=== PATIENT | female | born 1975 | race Caucasian/White ===

== ENCOUNTER 2023-05-07 17:05 | Emergency (ER) | payer OTHER, SELFPAY ==
[2023-05-07 17:21] VITALS: BP 156/105; PULSE 100; RESP 16; TEMP 36.6; O2SAT 98
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
== END 2023-05-07 18:08 | disposition home or self-care (01) ==
PROVIDERS: Emergency Provider Nurse Practitioner Family
DX: S16.1XXA Strain of muscle, fascia and tendon at neck level, initial encounter (principal); V43.52XA Car driver injured in collision with other type car in traffic accident, initial encounter; F41.9 Anxiety disorder, unspecified
CPT/HCPCS: 99213; G0463

== ENCOUNTER 2023-05-18 11:49 | Emergency (ER) | payer OTHER, SELFPAY ==
--- NOTE | ~2023-05-18 | XR_ITS ---
EXAMINATION:XR_CERV2-3V_CR DATE: 05/18/2023 13:14 INDICATION: Neck pain TECHNIQUE: AP, lateral, lateral swimmers and odontoid views of the cervical spine are provided. COMPARISON: None FINDINGS: Alignment is normal. The odontoid process is intact. No fracture is identified. The vertebr al body heights are maintained. There is moderate loss of intervertebral disc space height at C6-7. S mall degenerative osteophytes project from the anterior endplates of multiple vertebral bodies. There is moderate facet and uncovertebral joint osteoarthritis at C6-7. Prevertebral soft tissues are norm al. IMPRESSION: 1. Moderate cervical spondylosis at C6-7 without acute osseous abnormality. 

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
[2023-05-18 12:00] VITALS: BP 162/94; PULSE 106; RESP 16; TEMP 37.2; O2SAT 99
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
== END 2023-05-18 13:45 | disposition home or self-care (01) ==
PROVIDERS: Emergency Provider Registered Nurse
DX: M54.41 Lumbago with sciatica, right side (principal); S16.1XXD Strain of muscle, fascia and tendon at neck level, subsequent encounter; V49.9XXD Car occupant (driver) (passenger) injured in unspecified traffic accident, subsequent encounter; F41.9 Anxiety disorder, unspecified
CPT/HCPCS: 72040; 72100; 99213; G0463

== ENCOUNTER → 2023-06-29 14:25 | Outpatient (CLI) | payer BC, SELFPAY ==
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
== END ==
PROVIDERS: PCP Family Medicine
DX: T14.90XA Injury, unspecified, initial encounter (principal); M47.896 Other spondylosis, lumbar region; M47.894 Other spondylosis, thoracic region; M47.897 Other spondylosis, lumbosacral region
CPT/HCPCS: 72141; 72148

== ENCOUNTER → 2023-07-26 15:32 | Outpatient (CLI) | payer BC, SELFPAY ==
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
== END ==
PROVIDERS: Visit Provider Nurse Practitioner Family
DX: T14.90XA Injury, unspecified, initial encounter (principal); M47.894 Other spondylosis, thoracic region
CPT/HCPCS: 72146

== ENCOUNTER 2023-11-29 12:45 | Outpatient (CLI) | payer BC, SELFPAY ==
--- NOTE | ~2023-11-29 | MM_ITS ---
EXAMINATION: MM screening kevin BI w britany HISTORY: Screening mammogram TECHNIQUE: Craniocaudal and mediolateral oblique 3-D tomosynthesis images were obtained and synthetic 2-D images were generated. CAD analysis was submitted and interpreted. COMPARISON: No prior mammogram is available for comparison at this institution. BREAST PARENCHYMAL COMPOSITION: There are scattered areas of fibroglandular density. FINDINGS: There is no evidence of suspicious mass, calcification, or architectural distortion to sugg est malignancy in either breast. IMPRESSION: 1. No mammographic evidence of malignancy. 2. Recommend routine screening mammography in one year. BI-RADS Category 1: Negative Reviewed, dictated and finalized at location A. [employer]CTOR [employer]ING
== END 2023-11-29 12:46 ==
LOC: MICIMG 12:46
PROVIDERS: PCP Nurse Practitioner Family; Visit Provider Nurse Practitioner Family
DX: Z12.31 Encounter for screening mammogram for malignant neoplasm of breast (principal)
CPT/HCPCS: 77063; 77067

== ENCOUNTER 2023-12-27 14:57 | Emergency (ER) | payer BC, SELFPAY ==
[2023-12-27 15:11] VITALS: BP 146/83; PULSE 87; RESP 16; TEMP 36.6; O2SAT 100
--- NOTE | 2023-12-27 15:23 | ED.URI ---
HPI - URI/Sore Throat General Chief Complaint: Ear Stated Complaint: Right Ear Irritation Time Seen by Provider: 12/27/23 15:23 Source: patient, RN notes reviewed and old records reviewed Mode of arrival: ambulatory Limitations: no limitations History of Present Illness HPI Narrative: 48-year-old female presents to the [facility] with right ear discomfort for 2 days. Had use Q-tips in her ears. Denies any other symptoms Takes ibuprofen on a regular basis Related Data Home Medications Medication Instructions Recorded Confirmed blood sugar diagnostic (OneTouch 12/27/23 12/27/23 Ultra Test strips) blood-glucose meter (OneTouch 12/27/23 12/27/23 Ultra2 Meter) carisoprodol 250 mg tablet 250 mg PO DIRECTED 12/27/23 12/27/23 ibuprofen 800 mg tablet 800 mg PO DIRECTED 12/27/23 12/27/23 lancets 33 gauge (OneTouch Delica 12/27/23 12/27/23 Plus Lancet) metformin 500 mg tablet 500 mg PO DIRECTED 12/27/23 12/27/23 Allergies Allergy/AdvReac Type Severity Reaction Status Date / Time No Known Allergies Allergy Verified 12/27/23 15:10 Review of Systems Review of Systems: All systems reviewed & are unremarkable except as noted in HPI and below Constitutional: Constitutional: Reports no additional constitutional complaints Eyes: Eyes: Reports no additional eye complaints ENT: Reports as per HPI and Reports otalgia Cardiovascular: Cardiovascular: Reports no additional cardiovascular complaints, Denies chest pain and Denies dyspnea Respiratory: Respiratory: Reports no additional respiratory complaints, Denies chest congestion, Denies cough and Denies dyspnea Gastrointestinal: Gastrointestinal: Reports no additional gastrointestinal complaints, Denies abdominal pain, Denies nausea and Denies vomiting Musculoskeletal: Musculoskeletal: Reports no additional musculoskeletal complaints Integumentary/Breasts: Skin/Breast: Reports system reviewed and no additional complaints, except as docu Neurologic: Reports system reviewed and no additional complaints, except as documented Psychiatric: Psychiatric: Reports no additional psychiatric complaints Allergic/Immunologic: Allergic/Immunologic: Reports no additional allergic/immunologic complaints PMFSH Past Medical History Medical History Anxiety Surgical History Surgical History S/P lumbar microdiscectomy Social History Social History Smoking status: Never smoker Alcohol intake: current Alcohol use details: social Substance use type: does not use Living arrangements: with family Gender identity (if verbalized by the patient): Female Comments At the time of my signature, I reviewed and agree with the nursing past medical, surgical, social, and family history. There is no relevant family history pertinent to the patient complaint. Exam Const: General: cooperative, healthy appearing, comfortable, no acute distress, well developed, alert and well nourished Nutritional Appearance: well nourished Orientation/consciousness: patient oriented x3 Limitations: no limitations HENMT: Head: normal to inspection Ears: hearing grossly normal bilaterally, external ears normal, TM's normal bilaterally, mastoids normal, no periauricular adenopathy and Abnormal EAC present erythema on the right, edema on the right and other (Abrasions noted to the anterior and lower portion of the ear canal right ear canal); no EA tenderness, no foreign body and no otic discharge Face/Nose/Sinus: Normal external nose present, Normal nares present, Normal nasal mucous membranes and turbinates present, normal facial exam and face symmetric Face and sinus: normal facial exam and face symmetric Mouth: Yes Normal oral and palatal mucosa present, Yes lip normal and Yes moist mucous membranes Throat: posterior oropharynx no
== END 2023-12-27 15:50 | disposition home or self-care (01) ==
PROVIDERS: Emergency Provider Nurse Practitioner; PCP Nurse Practitioner Family
DX: S00.411A Abrasion of right ear, initial encounter (principal); L08.9 Local infection of the skin and subcutaneous tissue, unspecified; X58.XXXA Exposure to other specified factors, initial encounter
CPT/HCPCS: 99213; G0463

== ENCOUNTER 2024-08-15 12:49 | Outpatient (CLI) | payer BC, SELFPAY ==
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
== END 2024-08-15 12:50 | disposition home or self-care (01) ==
LOC: MICIMG 12:50
PROVIDERS: PCP Nurse Practitioner Family; Visit Provider Nurse Practitioner Family
DX: T14.90XD Injury, unspecified, subsequent encounter (principal); M43.02 Spondylolysis, cervical region; M43.06 Spondylolysis, lumbar region; V49.9XXD Car occupant (driver) (passenger) injured in unspecified traffic accident, subsequent encounter
CPT/HCPCS: 72141; 72148

== ENCOUNTER 2024-10-24 15:25 | Outpatient (CLI) | payer BC, SELFPAY ==
--- NOTE | ~2024-10-24 | US_ITS ---
EXAMINATION: US venous doppler [facility] DATE: 10/24/2024 15:48 INDICATION: Left lower limb pain TECHNIQUE: Grayscale ultrasound images without and with compression and Doppler ultrasound images of the left lower extremity veins were obtained. COMPARISON: None. FINDINGS: The visualized portions of left common femoral vein, profunda (deep) femoral vein, femoral vein, popl iteal vein, peroneal veins, posterior tibial veins, gastrocnemius vein and greater saphenous vein out flow are patent. IMPRESSION: 1. No deep venous thrombosis in the left lower limb. 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
--- NOTE | ~2024-10-24 | XR_ITS ---
EXAMINATION: XR knee LT 3V DATE: 10/24/2024 15:55 INDICATION: Left knee pain. TECHNIQUE: 3 views of left knee including standing views were obtained. COMPARISON: None. FINDINGS: Alignment is normal. No fracture. There is mild osteoarthritis of lateral and patellofemora l compartments. No knee joint effusion. IMPRESSION: 1. Mild left knee osteoarthritis. 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
== END 2024-10-24 15:26 | disposition home or self-care (01) ==
PROVIDERS: PCP Nurse Practitioner Family; Visit Provider Nurse Practitioner Family
DX: M17.12 Unilateral primary osteoarthritis, left knee (principal); M79.605 Pain in left leg
CPT/HCPCS: 73562; 93971

== ENCOUNTER 2024-11-04 13:27 | Emergency (ER) | payer BC, SELFPAY ==
--- OUTSIDE RECORDS SUMMARY | 2024-11-04 14:14 | XMS_ITS | Clinical Summary ---
Author Organization [facility] Address [address] 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 Name Role Phone Unavailable Primary Care Provider Unavailabl e Social History Tobacco Use Types Packs/Day Years Used Date Smoking Tobacco: Never Assessed Comments Unknown Sex and Gender Information Value Date Recorded Sex Assigned at Not on file Legal Sex Female 11:48 PM CDT Gender Identity Not on file Sexual Orientation Not on file Plan of Treatment Health Maintenance Due Date Last Done Comments DTAP/TDAP/TD VACCINES (1 - Tdap) 1993 HEPATITIS B VACCINES (1 of 3 - 19+ 3-dose series) 1993 CERVICAL CANCER SCREENING 2004 BREAST CANCER SCREENING 2014 COLORECTAL SCREENING 12/16/2019 Colorectal Cancer Screening 12/16/2019 FIT-DNA Q 3 years 12/16/2019 FIT/FOBT Q 1 year 12/16/2019 Flex Sig/CT Colonography Q 5 years 12/16/2019 INFLUENZA VACCINE (#1) 2024 PNEUMOCOCCAL VACCINE 0-64 YEARS Aged Out No longer eligible based on patient's age to complete this topic
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
[2024-11-04 14:20] VITALS: BP 151/96; PULSE 120; RESP 20; TEMP 36.5; O2SAT 98
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
[2024-11-04] MEDS: dexAMETHasone SOD PHOS INJ 10 MG/ML 1 ML VIAL IM (15:09)
[2024-11-04] MEDS: HYDROmorphone HCL INJ (*CRX) 1 MG/ML SYR IM (15:09)
[2024-11-04 15:14] VITALS: BP 157/109; PULSE 129; RESP 18; O2SAT 98
--- OUTSIDE RECORDS SUMMARY | 2024-11-04 15:40 | XMS_ITS | Clinical Summary ---
Author Organization [facility] Address [address] 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
== END 2024-11-04 15:17 | disposition home or self-care (01) ==
PROVIDERS: Emergency Provider Student in an Organized Health Care Education/Training Program; PCP Nurse Practitioner Family
DX: M54.16 Radiculopathy, lumbar region (principal); M54.50 Low back pain, unspecified; G89.29 Other chronic pain; F41.9 Anxiety disorder, unspecified
CPT/HCPCS: 96372; 99284; J1100; J1171

== ENCOUNTER 2025-07-16 10:21 | Outpatient (CLI) | payer BC, SELFPAY ==
--- NOTE | ~2025-07-16 | US_ITS ---
US abdomen complete EXAMINATION: US Abdomen Complete INDICATION: Abnormal weight loss PROCEDURE: Realtime High Resolution abdomen ultrasound. COMPARISON: No prior studies for comparison FINDINGS: Gallbladder contains stones. No gallbladder wall thickening or pericholecystic fluid. Common bile duct measures 4 mm. Liver echotexture within normal limits without focal mass. Pancreas within normal limits. Pancreatic tail is obscured by bowel gas. Spleen is unremarkeable. Renal echotexture is within normal limits bilaterally without hydronephrosis, contour deforming mass or renal stone. Right kidney measures 9.9 cm. Left kidney measures 9.8 cm. Visualized aspects of the aorta and IVC are within normal limits. Portal vein is patent. No sonographic Mclaughlin's sign indicated by the technologist. IMPRESSION: 1: Cholelithiasis. Reviewed, dictated and finalized at location O. IMPRESSION: 1: Cholelithiasis.
== END 2025-07-16 10:22 | disposition home or self-care (01) ==
LOC: MICIMG 10:21
PROVIDERS: PCP Nurse Practitioner Family; Visit Provider Nurse Practitioner Family
DX: R79.89 Other specified abnormal findings of blood chemistry (principal); R63.4 Abnormal weight loss; K80.20 Calculus of gallbladder without cholecystitis without obstruction
CPT/HCPCS: 76700

== ENCOUNTER 2025-07-17 11:48 | Outpatient (CLI) | payer BC, SELFPAY ==
--- NOTE | ~2025-07-17 | MR_ITS ---
EXAMINATION: MR lumbar spine wo/w con DATE: 07/17/2025 13:26 INDICATION: Low back pain. TECHNIQUE: Magnetic resonance imaging (MRI) of the lumbar spine was performed without and with 14 mL MultiHance intravenous contrast. COMPARISON: Lumbar spine MRI 08/15/2024 FINDINGS: Bone alignment is normal. There is mild chronic anterior wedging of T12 and L1 vertebral bodies. There is mildly decreased disc height at L1-L2 and L4-L5 and severely decreased disc height at L5-S1. The distal spinal cord signal intensity is normal. The conus medullaris is at L2. The following disc levels are specifically discussed: L1-L2: There is a central protrusion. There is mild bilateral facet joint osteoarthritis. There is no neural foraminal stenosis. There is mild central canal stenosis. L2-L3: The disc is bulging. There is moderate right and mild left facet joint osteoarthritis. There is mild bilateral neural foraminal stenosis. There is mild central canal stenosis. L3-L4: The disc is bulging. There is severe right and moderate left facet joint osteoarthritis. There is mild bilateral neural foraminal stenosis. There is mild central canal stenosis. L4-L5: The disc is bulging and has an annular fissure. There is severe bilateral facet joint osteoarthritis. There is mild bilateral neural foraminal stenosis. There is mild central canal stenosis. L5-S1: The disc is bulging and has an annular fissure. There is moderate right and severe left facet joint osteoarthritis. There is mild right and moderate left neural foraminal stenosis. There is mild central canal stenosis. IMPRESSION: 1. Severe lower lumbar spondylosis, stable from 08/15/2024. Reviewed, dictated and finalized at location E.
--- NOTE | ~2025-07-17 | MR_ITS ---
EXAMINATION: MR pituitary wo/w con DATE: 07/17/2025 13:25 INDICATION: Elevated prolactin level TECHNIQUE: Magnetic resonance imaging (MRI) of the brain and brainstem was performed without and with 14 mL Multihance intravenous contrast. Whole-brain sequences included sagittal T1-weighted FSE, axial diffusion-weighted FS EPI, axial T2*-weighted GRE, axial T2-weighted FLAIR Propeller, and axial T2-weighted Propeller. Small [id number] sequences included sagittal and coronal T1- weighted FSE centered at the pituitary. Postcontrast sequences included small [id number] coronal T1-weighted FSE in a time course and sagittal T1-weighted FSE and whole-brain axial T1-weighted FSE. Apparent diffusion coefficient (ADC) maps were created. . COMPARISON: None. FINDINGS: There are no areas of restricted diffusion to suggest acute infarction. No intracranial hemorrhage. Pituitary appears normal with normal midline pituitary stalk. There is a 2 mm possible hypoenhancing lesion slightly to the right of midline in the posterior pituitary evident only on series 20, image 33 with no correlate on the remaining images and could not exclude a microadenoma. No other abnormal masses or enhancing lesions identified. There are scattered areas of nonspecific increased T2-weighted signal intensity in the cerebral white matter, predominantly involving the deep and periventricular white matter which is within normal limits for age and likely sequela of chronic small vessel ischemic disease. There are no intraparenchymal signal abnormalities seen on the other pulse sequences. The ventricles are symmetric and normal in size. There are no abnormal extra-axial fluid collections. Flow voids are seen in the cerebral arteries on the T2-weighted sequences consistent with their expected patency. Mild mucosal thickening the bilateral ethmoid sinuses. Small mucous retention cyst at the left maxillary sinus. Visualized orbits and soft tissues are unremarkable. IMPRESSION: 1. 2 mm hypoenhancing focus slightly to the right of midline in the otherwise normal-appearing pituitary seen on only a single time point on the coronal imaging which is equivocal for a small pituitary microadenoma. 2. Otherwise normal for age brain with a few scattered small foci of nonspecific white matter T2 hyperintensity consistent with chronic small vessel ischemic disease. 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 IMPRESSION: 1. 2 mm hypoenhancing focus slightly to the right of midline in the otherwise n ormal-appearing pituitary seen on only a single time point on the coronal imagi ng which is equivocal for a small pituitary microadenoma. 2. Otherwise normal for age brain with a few scattered small foci of nonspecifi c white matter T2 hyperintensity consistent with chronic small vessel ischemic disease.
== END 2025-07-17 11:49 | disposition home or self-care (01) ==
PROVIDERS: PCP Nurse Practitioner Family; Visit Provider Nurse Practitioner Family
DX: R10.9 Unspecified abdominal pain (principal); R20.0 Anesthesia of skin; R79.89 Other specified abnormal findings of blood chemistry; R63.4 Abnormal weight loss; M54.50 Low back pain, unspecified; E22.1 Hyperprolactinemia
CPT/HCPCS: 70553; 72158; A9577